=== PATIENT | female | born 1960 | race American Indian/Alaskan Native ===

== ENCOUNTER 2022-04-06 06:29 | Emergency (ER) | payer OTHER ==
[2022-04-06 06:40] VITALS: BP 132/69
--- NOTE | 2022-04-06 07:18 | Emergency Department Report ---
Chief Complaint: Urogenital-Female Stated Complaint: VAGINAL CYST Time Seen by Provider: 04/06/22 07:18 - Exam Vital Signs: Vital Signs 04/06/22 06:37 Temperature 97.6 F Pulse Rate 83 Respiratory 18 Rate Blood Pressure 132/69 [Left] O2 Sat by Pulse 100 Oximetry MSE screening note: Focused history and physical exam performed. Due to findings the following was ordered: ED Disposition for MSE Condition: Stable
--- NOTE | 2022-04-06 08:17 | Emergency Department Report ---
- General Chief complaint: Urogenital-Female Stated complaint: VAGINAL CYST Time Seen by Provider: 04/06/22 07:18 Source: patient Mode of arrival: Ambulatory Limitations: No Limitations - History of Present Illness Initial comments: 62 yo comes in with left labial "cyst." Painful Has not seen PCP - Related Data Allergies Allergy/AdvReac Type Severity Reaction Status Date / Time sulfamethoxazole Allergy Swelling Verified 04/06/22 06:40 [From Bactrim] trimethoprim [From Bactrim] Allergy Swelling Verified 04/06/22 06:40 Abscess Boil HPI - HPI Chief Complaint: Urogenital-Female Stated Complaint: VAGINAL CYST Time Seen by Provider: 04/06/22 07:18 Allergies/Adverse Reactions: Allergies Allergy/AdvReac Type Severity Reaction Status Date / Time sulfamethoxazole Allergy Swelling Verified 04/06/22 06:40 [From Bactrim] trimethoprim [From Bactrim] Allergy Swelling Verified 04/06/22 06:40 ED Review of Systems ROS: Stated complaint: VAGINAL CYST Other details as noted in HPI Comment: All other systems reviewed and negative ED Past Medical Hx - Past Medical History Previous Medical History?: No - Surgical History Past Surgical History?: No - Family History Family history: no significant - Social History Smoking Status: Never Smoker Substance Use Type: None ED Physical Exam - General Limitations: No Limitations General appearance: alert, in no apparent distress - Head Head exam: Present: atraumatic, normocephalic - Eye Eye exam: Present: normal appearance - ENT ENT exam: Present: mucous membranes moist - Neck Neck exam: Present: normal inspection - Respiratory Respiratory exam: Present: normal lung sounds bilaterally. Absent: respiratory distress - Cardiovascular Cardiovascular Exam: Present: regular rate, normal rhythm. Absent: systolic murmur, diastolic murmur, rubs, gallop - GI/Abdominal GI/Abdominal exam: Present: soft, normal bowel sounds - Extremities Exam Extremities exam: Present: normal inspection - Back Exam Back exam: Present: normal inspection - Neurological Exam Neurological exam: Present: alert, oriented X3 - Psychiatric Psychiatric exam: Present: normal affect, normal mood - Skin Skin exam: Present: warm, dry, intact, normal color. Absent: rash ED Course Vital Signs 04/06/22 06:37 Temperature 97.6 F Pulse Rate 83 Respiratory 18 Rate Blood Pressure 132/69 [Left] O2 Sat by Pulse 100 Oximetry Critical care attestation.: If time is entered above; I have spent that time in minutes in the direct care of this critically ill patient, excluding procedure time. ED Disposition Clinical Impression: Labial cyst Disposition: 07 LEFT WITHOUT BEING SEEN Is pt being admited?: No Does the pt Need Aspirin: No Condition: Stable Referrals: PRIMARY CARE, [Primary Care Provider] - 3-5 Days Time of Disposition: 13:40
== END 2022-04-06 10:00 | disposition left against medical advice (07) ==
LOC: ED 06:29
DX: N89.8 Other specified noninflammatory disorders of vagina (principal); Z53.21 Procedure and treatment not carried out due to patient leaving prior to being seen by health care provider
CPT/HCPCS: 99281

== ENCOUNTER 2022-04-09 23:51 | Emergency (ER) | payer OTHER ==
[2022-04-09 23:58] VITALS: BP 137/74
== END 2022-04-10 04:47 | disposition left against medical advice (07) ==
LOC: ED 23:51
DX: N89.8 Other specified noninflammatory disorders of vagina (principal); Z53.21 Procedure and treatment not carried out due to patient leaving prior to being seen by health care provider